=== PATIENT | female | born 1975 | race Hispanic/Latino ===

== ENCOUNTER 2024-03-24 07:30 | Day surgery (SDC) | payer OTHER ==
[~2024-03-24] VITALS: Ht 156 cm; Wt 72.6 kg
[~2024-03-24 07:30] MED LIST: ASPIRINCHW 81MG PO; HYDROCHLOROT25 MG PO; LOSARTAN POTASS50 MG PO
[2024-03-24] MEDS ORDERED: FAMOTIDINE 10MG/ML 2ML SDV IV ONE (07:39)
[2024-03-24] MEDS ORDERED: LACTATED RINGER'S 1,000 ML IV ONE (07:39)
[2024-03-24 09:14] VITALS: BP 115/77
[2024-03-24] MEDS ORDERED: PROPOFOL 200 MG/20 ML VIAL IV ONE (13:21)
[2024-03-24] MEDS ORDERED: GLYCOPYRROLATE 0.2 MG/ML IV ONE (13:21)
[2024-03-24] MEDS ORDERED: LIDOCAINE HCL 2% 2ML SDV IV ONE (13:21)
== END 2024-03-24 09:21 | disposition home or self-care (01) ==
LOC: ORM 07:30 → ENDO 07:30
PROVIDERS: ATTEND Internal Medicine Gastroenterology
DX: K64.8 Other hemorrhoids (principal)